=== PATIENT | female | born 1985 | race Caucasian/White ===

== ENCOUNTER 2019-09-13 06:35 | Inpatient (IN) | payer OTHER ==
[2019-09-13] MEDS ORDERED: ELECTROLYTE-148 SOLN 1,000 ML IV SCH ×2 (06:45→07:45)
[2019-09-13] MEDS ORDERED: CITRIC ACID/SODIUM CITRATE 30 ML UNIT-DOSE CUP PO ONE (06:45)
[2019-09-13] MEDS ORDERED: DEXAMETHASONE SOD PHOSPHATE 4 MG/1 ML VIAL ONE (07:55)
[2019-09-13] MEDS ORDERED: morphine SULFATE/PF 0.5 MG/ML (2cc Syringe - QUVA) ONE (07:55)
[2019-09-13] MEDS ORDERED: CLINDAMYCIN PHOSPHATE 600 MG/4 ML VIAL ONE (07:55)
[2019-09-13 08:03] VITALS: BMI 30.7
[2019-09-13] MEDS ORDERED: OXYTOCIN 20 UNITS in 0.9% NS 40 UNIT/2,000 ML INFUS.BAG IV ONE (08:08)
[2019-09-13] MEDS ORDERED: MIDAZOLAM HCL 2 MG/2 ML SINGLE DOSE VIAL ONE (08:40)
[2019-09-13] MEDS ORDERED: OXYTOCIN 10 UNITS/ML VIAL ONE (08:40)
[2019-09-13] MEDS ORDERED: KETOROLAC TROMETHAMINE 30 MG/1 ML VIAL ONE (09:20)
[2019-09-13] MEDS ORDERED: ONDANSETRON 4 MG/2 ML VIAL IVPUSH PRN (09:39)
[2019-09-13] MEDS ORDERED: IBUPROFEN 800 MG/8 ML IJ IVPB PRN (09:40)
[2019-09-13] MEDS ORDERED: ACETAMINOPHEN 1000 MG/100 ML VIAL (NON FORMULARY) IVPB PRN (09:40)
--- NOTE | 2019-09-13 10:07 | HP ---
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: No: Alzheimer's, CVA, Dementia, Migraine, Multiple Sclerosis, Peripheral Neuropathy, Parkinson's, Seizure, Syncope, TIA, Vertigo, Other Cardiovascular: No: AFIB, Aneurysm, Aortic Insufficiency, Aortic Stenosis, CAD, CHF, Deep Vein Thrombosis, HTN, Hyperlipdemia, [place], Mitral Insufficiency, Mitral Stenosis, Murmur, Pulmonary Hypertension, Other Pulmonary: No: Asthma, Bronchitis, Cancer, COPD, O2 Dependent, Pneumonia, Previously Intubated, Pulmonary Embolus, Pulmonary Fibrosis, Sleep Apnea, Other Gastrointestinal: No: Ascites, Cancer, Constipation, Crohn's Disease, Diverticulitis, Diverticulosis, Esophageal Varices, Gastritis, GERD, GI Bleed, Hemorrhoids, Hiatal Hernia, Inflamatory Bowel Disease, Irritable Bowel Disease, Pancreatitis, Peptic Ulcer Disease, Ulcerative Colitis, Other Hepatobiliary: No: Cirrhosis, Cholelithiasis, Cholecystitis, Choledocholithiasis , Hepatitis A, Hepatitis B, Hepatitis C, Other Renal/: No: Renal Failure, Renal Inusuff, BPH, Cancer, Hematuria, Hemodialysis , Neurogenic Bladder, Renal Calculi, UTI, Other Reproductive: No: Ectopic , Endometriosis, Fibroids, PID, Polycystic Ovary Syndrome, Postmenopausal, Other ...: 2 ...Para: 2 ...Term: 0 ...: 2 ...Spon : 0 ...Induced : 0 ...Multiple Gestation: 0 ...EDC by Sono: 09/20/19 Heme/Onc: No: Anemia, B12 Deficiency, Bleeding Disorder, Cancer, Current Chemotherapy, Current Radiation Therapy, Hemochromatosis, Hypercoaguable State, Myeloproliferative Synd, Sickle Cell Disease, Sickle Cell Trait, Thrombocytopenia, Other Infectious Disease: No: AIDS, C-Diff, Herpes Zoster, HIV, MRSA, STD's, Tuberculosis, VREF, Other Psych: No: Addictions, Anxiety, Bipolar, Depression, Panic, Psychosis, Schizophrenia, Other Musculoskeletal: No: Bursitis, Chronic low back pain, Hemiparesis, Hemiplegia, Osteoarthritis, Paraplegia, Other Rheumatology: No: Fibromyalgia, Gout, Lupus, Rheumatoid Arthritis, Sarcoidosis, Vasculitis, Other ENT: No: Allergic Rhinitis, Sinusitis, Other Endocrine: No: Fremont's Disease, Vivi's Disease, Diabetes Insipidus, Diabetes Mellitus, Hyperparathyroidism, Hyperthyroidism, Hypothyroidism, Osteopenia, SIADH, Other Dermatology: No: Basal Cell, Cellulitis, Eczema, Melanoma, Psoriasis, Squamous Cell, Other - Past Surgical History Past Surgical History: No: None, AAA Repair, AICD, Amputation, Appendectomy, Arthrosocopy, AV Fistula/Graft, Bariatric Surgery, Breast Biopsy, Bypass, CABG, Carotid Endarterectomy, Cataract Removal, Cholecystectomy, Colectomy, Colonoscopy, Colostomy, Craniotomy, , Cystectomy, Hernia Repair, Hysterectomy, Ileal Conduit, Ileosotomy, Joint Replacement, Kidney Transplant, Laminectomy, Liver Transplant, Mastectomy, Nephrectomy, Oopherectomy, Orchiectomy, Permanent Pacemaker, Prostatectomy, Splenectomy, Stent, Thoracotomy , TURP, Tonsillectomy, Tubal Ligation, Upper Endoscopy, Valve Replacement, Vasectomy, Vein Stripping/Ligation Hx Myomectomy: No Hx Transabdominal Cerclage: No - Advance Directives Advance Directives: Yes: Living Will - Smoking History Smoking history: Never smoked Have you smoked in the past 12 months: No - Alcohol/Substance Use Hx Alcohol Use: No History of Substance Use: reports: None - Social History Usual Living Arrangement: Yes: With Spouse Do you think of yourself as: Straight/Heterosexual ADL: Independent History of Recent Travel: No Home Medications - Allergies Allergies/Adverse Reactions: Allergies Allergy/AdvReac Type Severity Reaction Status Date / Time penicillin G Allergy Severe Rash Verified 09/13/19 07:41 - Home Medications Home Medications: Ambulatory Orders Vits96/Iron Fum/Folic [ Tablet] 1 each PO DAILY 09/13/19 Family Medical History Family History: Denies Review of Systems - Review of Systems Constitutional: reports: No Symptoms Eyes: reports: No Symptoms HENT: reports: No Symptoms Neck: reports: No Symptoms Cardiovascular: reports: No Symptoms Respiratory: reports: No Symptoms Gastrointestinal: reports: No Symptoms Genitourinary: reports: No Symptoms Breasts: reports: No Symptoms Reported Musculoskeletal: reports: No Symptoms Integumentary: reports: No Symptoms Neurological: reports: No Symptoms Endocrine: reports: No Symptoms Hematology/Lymphatic: reports: No Symptoms Psychiatric: reports: No Symptoms 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 - Maternity Vital Signs: Vital Signs Temperature 98.0 F 09/13/19 07:30 Pulse Rate 77 09/13/19 07:30 Respiratory Rate 18 09/13/19 07:30 Blood Pressure 120/76 09/13/19 07:30 O2 Sat by Pulse Oximetry (%) Constitutional: Yes: Well Nourished, No Distress, Calm Eyes: Yes: WNL, Conjunctiva Clear, EOM Intact HENT: Yes: WNL, Atraumatic, Normocephalic Neck: Yes: WNL, Supple, Trachea Midline Cardiovascular: Yes: WNL, Regular Rate and Rhythm Lungs: Clear to auscultation Breast(s): Yes: WNL - Abdominal Exam/OB Fundal Height: 38 Number of Fetuses: Single Presentation: Vertex Contractions: Yes Regularity: Irregular Intensity: Mild Monitor Mode: External Heart Rate Location: [facility] Accelerations: Uniform Decelerations: None - Vaginal Exam/OB Vaginal Bleediing: No Speculum Exam: No Dilatation (cm): 1 Effacement (%): 50 Amniotic Membrane Status: Intact Presentation: Vertex/Position Station: -2 - 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 Musculoskeletal: Yes: WNL Extremities: Yes: WNL Edema: Yes Edema: LUE: 1+, RUE: 1+, LLE: 1+, RLE: 1+ Integumentary: Yes: WNL Deep Tendon Reflex Grade: Normal +2 ...Motor Strength: WNL Psychiatric: Yes: WNL, Alert, Oriented Assessment/Plan for repeat lt c s
--- NOTE | 2019-09-13 10:09 | OP ---
Operative Note - Note: Operative Date: 09/13/19 Pre-Operative Diagnosis: repeat lt c s Operation: repeat lt c s Findings: no adhesions Post-Operative Diagnosis: Same as Pre-op Surgeon: Shine Tucker Insurance Rater: Damion Danielson Anesthesia: Spinal Estimated Blood Loss (mls): 500 Operative Report Dictated: Yes
[2019-09-13] MEDS ORDERED: oxyCODONE HCL 5 MG TABLET PO PRN (10:10)
[2019-09-13] MEDS ORDERED: METHYLERGONOVINE MALEATE 0.2 MG/1 ML AMP IM PRN (10:10)
[2019-09-13] MEDS ORDERED: SENNOSIDES/DOCUSATE COMBO (SENNA PLUS) TABLET (UD) PO PRN (10:10)
[2019-09-13] MEDS ORDERED: OXYTOCIN 20 UNITS in 0.9% NS 20 UNIT/1,000 ML INFUS.BAG IV SCH (10:15)
[2019-09-13] MEDS: IBUPROFEN 800 MG/8 ML IJ IVPB PRN (12:00)
--- NOTE | 2019-09-13 12:22 | OP ---
DATE OF OPERATION: 09/13/2019 PREOPERATIVE DIAGNOSIS: Repeat low-transverse section. POSTOPERATIVE DIAGNOSIS: Repeat low-transverse section. PROCEDURE: Repeat low-transverse section. SURGEON: Patrick Alaniz MD COMPOUNDER [employer]ODUCTS: MIMI Pratt ANESTHESIOLOGIST: Miranda Dunn MD. Spinal anesthesia. INDICATION: This is a 33-year-old female patient, 39 weeks , IVF baby, with previous low-transverse section, currently 39 weeks , is taken to the OR for repeat low-transverse section. All the risks, benefits, and alternatives explained to the patient and patient understood. The patient was taken to the OR, placed on the operating table in supine position after spinal anesthesia was obtained. The patient's abdomen and pelvis was prepped and draped in the usual sterile manner. Pfannenstiel incision was made. Incision was made through the skin and subcutaneous tissue until the fascia was nicked in the midline. The fascia was extended bilaterally. Intraperitoneal cavity was entered. Bladder flap was created. Low-transverse segment of uterus was entered. Baby was delivered from POONAM position. The baby was handed over to wire weaver helper after umbilical cord doubly clamped and cut, cord blood gas obtained, placenta was removed. Uterus closed in single layer, first layer interlocking Vicryl sutures. Good hemostasis. There was cord around the neck x1. The uterus was closed. No complication. Both ovaries, fallopian tubes were within normal limits, no complication. Bladder flap was closed. Peritoneum was closed. Fascia was closed. Skin was closed. Draining clear urine. Blood loss about 500 mL. PATRICK ALANIZ MD [id number]
[2019-09-13] MEDS: ACETAMINOPHEN 325 MG TABLET (FP) PO PRN (18:27)
[2019-09-14 07:50] LABS: BASO % 0.2 % (0-2.0); EOS % 0.7 % (0-4.5); HEMATOCRIT 29.3 % (32.4-45.2); HEMOGLOBIN 9.4 GM/dL (10.7-15.3); LYMPH % 29.3 % (8-40); MCH 28.9 pg (25.7-33.7); MCHC 32.2 g/dl (32.0-36.0); MEAN CELL VOLUME 89.7 fl (80-96); MEAN PLT VOLUME 9.6 fl (7.5-11.1); MONO % 6.6 % (3.8-10.2); NEUT % 63.2 % (42.8-82.8); PLATELET COUNT 142 K/MM3 (134-434); RBC 3.27 M/mm3 (3.60-5.2); RDW 14.3 % (11.6-15.6); WHITE BLOOD COUNT 11.3 K/mm3 (4.0-10.0)
--- NOTE | 2019-09-14 08:13 | PN ---
Progress Note (short form) - Note Progress Note: Anesthesia post op/pain Pt seen and examined S:Alert and awake comfortable O: Vital Signs Temperature 98.5 F 09/14/19 05:32 Pulse Rate 61 09/14/19 05:32 Respiratory Rate 20 09/14/19 06:00 Blood Pressure 103/64 09/14/19 05:32 O2 Sat by Pulse Oximetry (%) 100 09/13/19 10:50 a/p:s/p c section Doing well post op Continue current care Piyush Riley MD
[2019-09-14] MEDS: IBUPROFEN 800 MG/8 ML IJ IVPB PRN (08:49)
[2019-09-14] MEDS: ENOXAPARIN NA (PORCINE) 40 MG/0.4 ML DISP.SYRIN SQ SCH (10:02)
[2019-09-14] MEDS ORDERED: BISACODYL 10 MG SUPP.RECT RC PRN (10:10)
[2019-09-14] MEDS: IBUPROFEN 600 MG TABLET (FP) PO PRN (16:54)
[2019-09-14] MEDS: SIMETHICONE 80 MG TAB.CHEW (FP) PO PRN (16:55)
--- NOTE | 2019-09-14 20:09 | PN ---
Post Progress Note Post Day: 1 Type of Delivery: Repeat C/S Vital Signs: Vital Signs Temperature 98.2 F 09/14/19 10:00 Pulse Rate 60 09/14/19 10:00 Respiratory Rate 18 09/14/19 12:00 Blood Pressure 105/60 09/14/19 10:00 O2 Sat by Pulse Oximetry (%) 100 09/13/19 10:50 Breast Exam: Yes: Soft Uterus: Yes: Fundus Firm, Fundus below umbilicus Incision: Yes: Dressing dry and intact, Sutures intact Abdomen/GI: Yes: Abdomen soft, Passing flatus, Tolerating PO Lochia: Yes: Serosa Lochia, amount: Small Extremities: Yes: Calves non-tender Perineum: Yes: Intact Activity: Ambulating - Labs Labs: CBC WBC 11.3 K/mm3 (4.0-10.0) H 09/14/19 07:20 RBC 3.27 M/mm3 (3.60-5.2) L 09/14/19 07:20 Hgb 9.4 GM/dL (10.7-15.3) L 09/14/19 07:20 Hct 29.3 % (32.4-45.2) L D 09/14/19 07:20 MCV 89.7 fl (80-96) 09/14/19 07:20 MCH 28.9 pg (25.7-33.7) 09/14/19 07:20 MCHC 32.2 g/dl (32.0-36.0) 09/14/19 07:20 RDW 14.3 % (11.6-15.6) 09/14/19 07:20 Plt Count 142 K/MM3 (134-434) 09/14/19 07:20 MPV 9.6 fl (7.5-11.1) 09/14/19 07:20 Absolute Neuts (auto) 7.2 K/mm3 (1.5-8.0) 09/14/19 07:20 Neutrophils % 63.2 % (42.8-82.8) 09/14/19 07:20 Lymphocytes % 29.3 % (8-40) D 09/14/19 07:20 Monocytes % 6.6 % (3.8-10.2) 09/14/19 07:20 Eosinophils % 0.7 % (0-4.5) 09/14/19 07:20 Basophils % 0.2 % (0-2.0) 09/14/19 07:20 Nucleated RBC % 0 % (0-0) 09/14/19 07:20 Assessment/Plan oob as much as possible
[2019-09-14] MEDS: oxyCODONE HCL 5 MG TABLET PO PRN (21:42)
[2019-09-15] MEDS: SIMETHICONE 80 MG TAB.CHEW (FP) PO PRN ×4 (03:57→21:31)
[2019-09-15] MEDS: IBUPROFEN 600 MG TABLET (FP) PO PRN (03:58)
[2019-09-15] MEDS ORDERED: FLU VACCINE QUAD 60 MCG/0.5 ML (MDV 19-20) IM ONE (10:00)
[2019-09-15] MEDS ORDERED: DIPHTH,PERTUSS(ACELL),TET 0.5 ML DISP.SYRIN IM ONE (10:00)
[2019-09-15] MEDS ORDERED: FLU VACC QS2019-20(6MOS UP)/PF 60 MCG/0.5 ML SYRINGE IM ONE (10:00)
--- NOTE | 2019-09-15 10:22 | PN ---
Post Progress Note Post Day: 2 Type of Delivery: Repeat C/S Vital Signs: Vital Signs Temperature 98.1 F 09/14/19 20:49 Pulse Rate 64 09/14/19 20:49 Respiratory Rate 18 09/14/19 12:00 Blood Pressure 121/71 09/14/19 20:49 O2 Sat by Pulse Oximetry (%) 100 09/13/19 10:50 Breast Exam: Yes: Soft Uterus: Yes: Fundus Firm, Fundus below umbilicus Incision: Yes: Dressing dry and intact, Sutures intact Abdomen/GI: Yes: Abdomen soft, Passing flatus, Tolerating PO Lochia: Yes: Serosa Lochia, amount: Small Extremities: Yes: Calves non-tender Perineum: Yes: Intact Activity: Ambulating - Labs Labs: CBC WBC 11.3 K/mm3 (4.0-10.0) H 09/14/19 07:20 RBC 3.27 M/mm3 (3.60-5.2) L 09/14/19 07:20 Hgb 9.4 GM/dL (10.7-15.3) L 09/14/19 07:20 Hct 29.3 % (32.4-45.2) L D 09/14/19 07:20 MCV 89.7 fl (80-96) 09/14/19 07:20 MCH 28.9 pg (25.7-33.7) 09/14/19 07:20 MCHC 32.2 g/dl (32.0-36.0) 09/14/19 07:20 RDW 14.3 % (11.6-15.6) 09/14/19 07:20 Plt Count 142 K/MM3 (134-434) 09/14/19 07:20 MPV 9.6 fl (7.5-11.1) 09/14/19 07:20 Absolute Neuts (auto) 7.2 K/mm3 (1.5-8.0) 09/14/19 07:20 Neutrophils % 63.2 % (42.8-82.8) 09/14/19 07:20 Lymphocytes % 29.3 % (8-40) D 09/14/19 07:20 Monocytes % 6.6 % (3.8-10.2) 09/14/19 07:20 Eosinophils % 0.7 % (0-4.5) 09/14/19 07:20 Basophils % 0.2 % (0-2.0) 09/14/19 07:20 Nucleated RBC % 0 % (0-0) 09/14/19 07:20 Assessment/Plan ambulating as much as possible
[2019-09-15] MEDS: ENOXAPARIN NA (PORCINE) 40 MG/0.4 ML DISP.SYRIN SQ SCH (10:28)
[2019-09-15] MEDS: ACETAMINOPHEN 325 MG TABLET (FP) PO PRN ×3 (11:03→21:31)
[2019-09-15] MEDS: oxyCODONE HCL 5 MG TABLET PO PRN ×3 (11:05→21:32)
--- NOTE | 2019-09-15 12:31 | DS ---
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 Vital Signs: Vital Signs Temperature 98.1 F 09/14/19 20:49 Pulse Rate 64 09/14/19 20:49 Respiratory Rate 18 09/14/19 12:00 Blood Pressure 121/71 09/14/19 20:49 O2 Sat by Pulse Oximetry (%) 100 09/13/19 10:50 Constitutional: Yes: Well Nourished, No Distress, Calm Eyes: Yes: WNL, Conjunctiva Clear, EOM Intact HENT: Yes: WNL, Atraumatic, Normocephalic Neck: Yes: WNL, Supple, Trachea Midline Cardiovascular: Yes: WNL, Regular Rate and Rhythm Respiratory: Yes: WNL, Regular, CTA Bilaterally Gastrointestinal: Yes: WNL, Normal Bowel Sounds, Soft ...Rectal Exam: Yes: WNL Renal/: Yes: WNL Pelvis: Yes: WNL External Genitalia: Yes: Normal Internal Exam Deferred: No Vaginal Exam: Yes: Normal Cervix: Yes: Normal Uterus: Yes: Normal Adnexa: Normal: Bilateral ....Post : Yes: Uterus firm, Uterus non-tender Breast(s): Yes: WNL Musculoskeletal: Yes: WNL Extremities: Yes: WNL Edema: Yes Edema: LUE: 1+, RUE: 1+, LLE: 1+, RLE: 1+ Integumentary: Yes: WNL Wound/Incision: Yes: Clean/Dry, Well Approximated Neurological: Yes: WNL, Alert, Oriented ...Motor Strength: WNL Psychiatric: Yes: WNL, Alert, Oriented Labs: CBC, BMP 09/14/19 07:20 Delivery - Delivery Type of Anesthesia: Spinal Episiotomy/Laceration: None EBL (cc): 500 Delivery, Single - Stages of Labor Date of Delivery: 09/13/19 Time of Delivery: 08:44 Time Placenta Delivered: 08:45 - Condition of Infant 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 Present: Yes Name: Benton Palomo Gender: Male Weight: 3.43 kg Position: Right, OA Total Hours ROM (Hrs/Mins): 0/2 - 1 Minute Total Score: 9 5 Minutes Total Score: 9 - Faber Feeding Plan Initial Plan: Elected not to breastfeed exclusively throughout hospitalization Discharge Summary Problems reviewed: Yes Reason For Visit: C SECTION Procedures: Principal: repeat c s Hospital Course: uneventful Health Concerns: none Plan of Treatment: oob as much as possible Condition: Good - Instructions Diet, Activity, Other Instructions: regular Disposition: HOME - Home Medications Comprehensive Discharge Medication List: Ambulatory Orders Vits96/Iron Fum/Folic [ Tablet] 1 each PO DAILY 09/13/19 Prescription Drug Monitoring Program (I-STOP) results: I-STOP reviewed and no issues identified
[2019-09-16 07:54] LABS: BASO % 0.3 % (0-2.0); EOS % 2.9 % (0-4.5); HEMATOCRIT 32.9 % (32.4-45.2); LYMPH % 29.6 % (8-40); MCHC 33.5 g/dl (32.0-36.0); MEAN CELL VOLUME 89.5 fl (80-96); MEAN PLT VOLUME 8.7 fl (7.5-11.1); MONO % 7.1 % (3.8-10.2); NEUT % 60.1 % (42.8-82.8); PLATELET COUNT 199 K/MM3 (134-434); RBC 3.67 M/mm3 (3.60-5.2); RDW 14.2 % (11.6-15.6); WHITE BLOOD COUNT 7.3 K/mm3 (4.0-10.0)
[2019-09-16] MEDS: IBUPROFEN 600 MG TABLET (FP) PO PRN (08:48)
[2019-09-16] MEDS: ACETAMINOPHEN 325 MG TABLET (FP) PO PRN (08:48)
[2019-09-16] MEDS: ENOXAPARIN NA (PORCINE) 40 MG/0.4 ML DISP.SYRIN SQ SCH (09:12)
[2019-09-16 10:51] VITALS: BP 136/81; PULSE 77; TEMP 98
--- NOTE | 2019-09-21 18:58 | PATH ---
Surgical Pathology Report Patient Name: BARI TONG [facility]. Rec. #: [id number] /Age/Gender: 1985 (Age: 33) / F Account: [id number] Location: [facility] OBS/CHAIRMAN EMERITUS Taken: 09/13/2019 Received: 09/14/2019 Reported: 09/21/2019 Physicians: Shine Tucker MD Specimen(s) Received PLACENTA Clinical History for repeat , IVF Final Diagnosis PLACENTA: THIRD TRIMESTER PLACENTA. TRIVASCULAR CORD. MEMBRANES WITH NO DIAGNOSTIC ABNORMALITIES. Electronically Signed Rajesh Fernandez M.D. Gross Description The specimen is received fresh labeled placenta and is a 548 gram, 17.0 x 14.0 x 3.3 cm. placenta with attached membranes and umbilical cord. The attached membranes are perez, translucent with focal opacities and insert marginally. The umbilical cord measures 23 cm. in length and averages 1.1 cm. in diameter. The cord inserts eccentrically, 2 cm. to the nearest margin. No true knots or strictures are identified. Cut surface of the umbilical cord reveals 3 vessels. The surface is azar blue with moderate fibrin deposition and appropriate caliber vessels. The maternal surface is red-brown with focal defects. Sectioning reveals red-brown, spongy parenchyma. No lesions are identified. Fish Boning Machine Feeder sections are submitted in three cassettes as follows: 1- membrane rolls and umbilical cord; 2-3- full thickness sections of placenta. /09/20/2019 saudi/09/20/2019
== END 2019-09-16 12:50 | disposition home or self-care (01) | DRG 540 ==
LOC: JLDR 06:35 → J3W 11:31
PROVIDERS: ADMIT Obstetrics & Gynecology; ATTEND Obstetrics & Gynecology
PROC: 10D00Z1 Extraction of Products of Conception, Low, Open Approach (ICD-10-PCS; principal; 2019-09-13)
DX: O34.219 Maternal care for unspecified type scar from previous cesarean delivery (principal); Z3A.39 39 weeks gestation of pregnancy; Z37.0 Single live birth
CPT/HCPCS: 36415; 85025; 88307-TC; 90686; 90715

== ENCOUNTER 2023-11-03 05:30 | Inpatient (IN) | payer OTHER ==
[2023-11-03] MEDS ORDERED: ELECTROLYTE-148 SOLN 500 ML IV ONE ×2 (06:00→08:08)
[2023-11-03] MEDS ORDERED: CITRIC ACID/SODIUM CITRATE 30 ML UNIT-DOSE CUP PO ONE (06:00)
[2023-11-03 06:30] VITALS: BMI 31.6
[2023-11-03] MEDS ORDERED: ELECTROLYTE-148 SOLN 1,000 ML IV SCH (06:30)
[2023-11-03] MEDS ORDERED: morphine SULFATE/PF 1 MG/2 ML (2cc Syringe - QUVA) ONE (08:18)
[2023-11-03] MEDS ORDERED: FENTANYL CITRATE/PF 50 MCG/ML VIAL ONE (08:18)
[2023-11-03] MEDS ORDERED: OXYTOCIN 10 UNITS/ML VIAL ONE (09:00)
[2023-11-03] MEDS ORDERED: KETOROLAC TROMETHAMINE 30 MG/1 ML VIAL ONE (09:00)
[2023-11-03] MEDS ORDERED: ONDANSETRON 4 MG/2 ML VIAL ONE (09:00)
[2023-11-03] MEDS ORDERED: ceFAZolin SODIUM 1 GM VIAL ONE (09:00)
[2023-11-03] MEDS ORDERED: OXYTOCIN 20 UNITS in 0.9% NS 20 UNIT/1,000 ML INFUS.BAG IV ONE (09:38)
[2023-11-03] MEDS ORDERED: ONDANSETRON 4 MG/2 ML VIAL IVPUSH PRN (09:43)
[2023-11-03] MEDS ORDERED: morphine SULFATE/PF 1 MG/2 ML (2cc Syringe - QUVA) EP ONE (09:43)
[2023-11-03] MEDS ORDERED: ACETAMINOPHEN 1000 MG/100 ML BAG IVPB ONE (09:45)
[2023-11-03] MEDS ORDERED: METHYLERGONOVINE MALEATE 0.2 MG/1 ML AMP IM PRN (09:47)
[2023-11-03] MEDS ORDERED: IBUPROFEN 800 MG/8 ML IJ IVPB PRN (09:47)
[2023-11-03] MEDS ORDERED: KETOROLAC TROMETHAMINE 30 MG/1 ML VIAL IVPUSH PRN (09:54)
[2023-11-03] MEDS: OXYTOCIN 20 UNITS in 0.9% NS 20 UNIT/1,000 ML INFUS.BAG IV SCH ×2 (10:00→18:41)
[2023-11-03] MEDS ORDERED: MAG HYDROX/AL HYDROX/SIMETH 30 ML UNIT-DOSE CUP PO PRN (10:04)
[2023-11-03] MEDS: ELECTROLYTE-148 SOLN 1,000 ML IV SCH (13:45)
[2023-11-03] MEDS: PRENATAL VITAMINS W/ FOLIC ACID TABLET (FP) PO SCH (13:45)
[2023-11-03] MEDS ORDERED: ACETAMINOPHEN 1000 MG/100 ML BAG IVPB PRN (15:30)
[2023-11-03] MEDS: SIMETHICONE 80 MG TAB.CHEW (FP) PO PRN (21:43)
[2023-11-03] MEDS: IBUPROFEN 600 MG TABLET (FP) PO PRN (21:43)
[2023-11-03] MEDS: SENNOSIDES/DOCUSATE COMBO (SENNA PLUS) TABLET (UD) PO PRN (21:43)
[2023-11-03] MEDS ORDERED: oxyCODONE HCL 5 MG TABLET PO PRN (21:47)
[2023-11-04] MEDS: IBUPROFEN 600 MG TABLET (FP) PO PRN ×4 (02:09→19:40)
[2023-11-04] MEDS: SIMETHICONE 80 MG TAB.CHEW (FP) PO PRN ×4 (02:09→22:08)
[2023-11-04 08:39] LABS: BASO % 0.2 % (0-2.0); EOS % 1.4 % (0-4.5); HEMATOCRIT 26.6 % (32.4-45.2); LYMPH % 14.5 % (8-40); MCH 29.2 pg (25.7-33.7); MCHC 33.8 g/dl (32.0-36.0); MEAN CELL VOLUME 86.6 fl (80-96); MEAN PLT VOLUME 9.3 fl (7.5-11.1); MONO % 7.4 % (3.8-10.2); NEUT % 76.5 % (42.8-82.8); PLATELET COUNT 149 10^3/uL (134-434); RBC 3.07 M/mm3 (3.60-5.2)
[2023-11-04] MEDS: PRENATAL VITAMINS W/ FOLIC ACID TABLET (FP) PO SCH (09:06)
[2023-11-04] MEDS: ACETAMINOPHEN 325 MG TABLET (FP) PO PRN ×2 (09:07→22:08)
[2023-11-04] MEDS: FERROUS SO4 325 MG TABLET (FP) PO SCH ×2 (09:07→16:56)
[2023-11-04] MEDS ORDERED: BISACODYL 10 MG SUPP.RECT RC PRN (09:47)
[2023-11-04] MEDS: ELECTROLYTE-148 SOLN 1,000 ML IV SCH (10:30)
[2023-11-04] MEDS: OXYTOCIN 20 UNITS in 0.9% NS 20 UNIT/1,000 ML INFUS.BAG IV SCH (10:31)
[2023-11-04] MEDS: oxyCODONE HCL 5 MG TABLET PO PRN (15:50)
[2023-11-04] MEDS: SENNOSIDES/DOCUSATE COMBO (SENNA PLUS) TABLET (UD) PO PRN (19:42)
[2023-11-05] MEDS: IBUPROFEN 600 MG TABLET (FP) PO PRN ×3 (00:21→21:36)
[2023-11-05] MEDS: PRENATAL VITAMINS W/ FOLIC ACID TABLET (FP) PO SCH (09:53)
[2023-11-05] MEDS: FERROUS SO4 325 MG TABLET (FP) PO SCH ×2 (09:53→17:36)
[2023-11-05] MEDS: SIMETHICONE 80 MG TAB.CHEW (FP) PO PRN (09:56)
[2023-11-05] MEDS ORDERED: ONDANSETRON 8 MG TABLET (FP) PO PRN (10:02)
[2023-11-05] MEDS ORDERED: ONDANSETRON 4 MG TABLET PO ONE (10:49)
[2023-11-05] MEDS ORDERED: ONDANSETRON 4 MG TABLET PO PRN (10:56)
[2023-11-05] MEDS: ACETAMINOPHEN 325 MG TABLET (FP) PO PRN (10:59)
[2023-11-05] MEDS: oxyCODONE HCL 5 MG TABLET PO PRN (17:36)
[2023-11-05] MEDS: SENNOSIDES/DOCUSATE COMBO (SENNA PLUS) TABLET (UD) PO PRN (21:36)
[2023-11-05 22:00] VITALS: RESP 18
[2023-11-06] MEDS: FERROUS SO4 325 MG TABLET (FP) PO SCH (08:00)
[2023-11-06] MEDS: oxyCODONE HCL 5 MG TABLET PO PRN (08:30)
[2023-11-06] MEDS: SIMETHICONE 80 MG TAB.CHEW (FP) PO PRN (08:30)
[2023-11-06] MEDS: PRENATAL VITAMINS W/ FOLIC ACID TABLET (FP) PO SCH (09:47)
[2023-11-06 10:25] VITALS: BP 112/74; PULSE 79; TEMP 98
== END 2023-11-06 12:05 | disposition home or self-care (01) | DRG 540 ==
LOC: JLDR 05:30 → J3W 12:30
PROVIDERS: ADMIT Obstetrics & Gynecology; ATTEND Obstetrics & Gynecology
PROC: 10D00Z1 Extraction of Products of Conception, Low, Open Approach (ICD-10-PCS; principal; 2023-11-03)
DX: O34.211 Maternal care for low transverse scar from previous cesarean delivery (principal); N85.8 Other specified noninflammatory disorders of uterus; Z3A.39 39 weeks gestation of pregnancy; Z37.0 Single live birth
CPT/HCPCS: 36415; 85025; 86850; 86900; 86901; 88307-TC